=== PATIENT | male | born 1975 | race Caucasian/White ===

== ENCOUNTER 2018-07-12 11:28 | Inpatient (IN) | payer OTHER ==
[2018-07-12 12:18] VITALS: BMI 20.5
--- NOTE | 2018-07-12 12:38 | HP ---
Admission [facility] Chief Complaint: i am here for rehab from crystal meth Allergies/Adverse Reactions: Allergies Allergy/AdvReac Type Severity Reaction Status Date / Time No Known Allergies Allergy Verified 07/12/18 12:10 History of Present Illness: this 43 years old male with crystal meth dependence,seeking rehab hepatitis c had i and d abscess left forearm 2 weeks ago on antibiotics bipolar disorder,anxiety,depression,ptsd weight loss last rehab [facility] Exam Limitations: No Limitations - Ebola screening Have you traveled outside of the country in the last 21 days: No Have you had contact with anyone from an Ebola affected area: No Have you been sick,other than usual withdrawal symptoms: No Do you have a fever: No - Review of Systems Constitutional: No Symptoms Reported EENT: reports: No Symptoms Reported Respiratory: reports: No Symptoms reported Cardiac: reports: No Symptoms Reported GI: reports: No Symptoms Reported : reports: No Symptoms Reported Musculoskeletal: reports: No Symptoms Reported Integumentary: reports: No Symptoms Reported Neuro: reports: No Symptoms reported Endocrine: reports: No Symptoms Reported Hematology: reports: No Symptoms Reported Psychiatric: reports: No Sypmtoms Reported, Judgement Intact, Mood/Affect Appropiate, Orientated x3, Anxious, Depressed (bipolar disorder,depression,ptsd, ) Patient History - Patient Medical History Hx Anemia: No Hx Asthma: No Hx Chronic Obstructive Pulmonary Disease (COPD): No Hx Cancer: No Hx Cardiac Disorders: No Hx Congestive Heart Failure: No Hx Hypertension: No Hx Seizures: No Hx Dementia: No Hx Diabetes: No Hx Gastrointestinal Disorders: Yes (stomach ulcer) Hx Genitourinary Disorders: No Hx Sexually Transmitted Disorders: Yes (syphilis) Hx Renal Disease (ESRD): No Hx Thyroid Disease: No Hx Human Immunodeficiency Virus (HIV): No (05/30 negative) Hx Depression: Yes Hx Suicide Attempt: No Hx Bipolar Disorder: Yes Hx Schizophrenia: No Other Medical History: ptsd,anxiety,no suicidal,no homicidal - Patient Surgical History Past Surgical History: Yes Hx Neurologic Surgery: No Hx Cataract Extraction: No Hx Cardiac Surgery: No Hx Lung Surgery: No Hx Breast Surgery: No Hx Breast Biopsy: No Hx Abdominal Surgery: No Hx Appendectomy: No Hx Cholecystectomy: No Hx Genitourinary Surgery: No Hx Section: No Hx Orthopedic Surgery: Yes (fx, right ankle at age 27) Other Surgical History: incision and drainage, abscess, left forearm Anesthesia Reaction: No - PPD History Previous Implant?: Yes Documented Results: Negative w/o proof Implanted On Prior [facility] Admission?: No PPD to be Administered?: Yes - Smoking Cessation Smoking history: Current every day smoker Have you smoked in the past 12 months: Yes Aproximately how many cigarettes per day: 5 Hx Chewing Tobacco Use: No Initiated information on smoking cessation: Yes 'Breaking Loose' booklet given: 07/12/18 - Substance & Tx. History Hx Alcohol Use: No Hx Substance Use: Yes Hx Substance Use Treatment: Yes ([facility]) - Substances Abused Crystal meth. Route: Injection Frequency: 3-6 times per week Amount used: $200 Age of first use: 38 Date of Last Use: 07/10/18 Family Disease History - Family Disease History Family Disease History: Other: Father (dsa) Admission Physical Exam [facility] - Vital Signs Vital Signs: Vital Signs - 24 hr 07/12/18 12:14 Temperature 98.5 F Pulse Rate 83 Respiratory 20 Rate Blood Pressure 116/67 - Physical General Appearance: Yes: Within Normal Limits HEENTM: Yes: Normal ENT Inspection, CLAUDIA, Pharynx Normal Respiratory: Yes: Within Normal Limits, Lungs Clear, Normal Breath Sounds Neck: Yes: Within Normal Limits, Supple, Trachea in good position Breast: Yes: Within Normal Limits Cardiology: Yes: Within Normal Limits, Regular Rhythm, Regular Rate, S1, S2 Abdominal: Yes: Within Normal Limits, Normal Bowel Sounds, Non Tender, Flat, Soft Genitourinary: Yes: Within Normal Limits Back: Yes: Within Normal Limits Musculoskeletal: Yes: Within Normal Limits Extremities: Yes: Within Normal Limits, Inflammation Neurological: Yes: Fully Oriented, Alert, Motor Strength 5/5 Integumentary: Yes: Within Normal Limits (resolving abscess left forearm) - Diagnostic (1) Methamphetamine addiction Current Visit: Yes Status: Acute (2) Abscess of left forearm Current Visit: Yes Status: Acute (3) Weight loss Current Visit: Yes Status: Acute (4) Nicotine dependence Current Visit: Yes Status: Acute (5) Bipolar disorder Current Visit: Yes Status: Acute (6) PTSD (post-traumatic stress disorder) Current Visit: Yes Status: Acute (7) Anxiety and depression Current Visit: Yes Status: Acute Cleared for Admission [facility] - Detox or Rehab Claeared for Rehab Admission: Yes [facility] Breath Alcohol Content Breath Alcohol Content: 0 Urine Drug Screen - Results Drug Screen Negative: No Urine Drug Screen Results: THC-Marijuana, AMP-Amphetamines, MET-Methamphetamine , MDMA-Ecstasy, BAR-Barbiturates Inpatient Rehab Admission - Initial Determination Are CD services needed?: Yes Free of communicable disease: Yes Not in need of hospitalization: Yes - Rehab Admission Criteria Previous failed treatment: Yes Poor recovery environment: Yes Comorbidities: Yes Patient is meeting Inpatient Rehab admission criteria:: Yes
[2018-07-12] MEDS ORDERED: guaiFENesin/D-METHORPHAN HB 10 ML UNIT-DOSE CUPS PO PRN (12:50)
[2018-07-12] MEDS ORDERED: MAGNESIUM HYDROX 2400MG/30ML ORAL SUSPENSION 30 ML CUP PO PRN (12:50)
[2018-07-12] MEDS ORDERED: LOPERAMIDE HCL 2 MG CAPSULE PO PRN (12:50)
[2018-07-12] MEDS ORDERED: ACETAMINOPHEN 325 MG TABLET (FP) PO PRN (12:50)
[2018-07-12] MEDS ORDERED: MENTHOL/PHENOL 1 EACH UD MM PRN (12:50)
[2018-07-12] MEDS ORDERED: MAG HYDROX/AL HYDROX/SIMETH 30 ML UNIT-DOSE CUP PO PRN (12:50)
[2018-07-12] MEDS ORDERED: MAGNESIUM CITRATE 300 ML BOTTLE PO PRN (12:50)
[2018-07-12] MEDS ORDERED: P-EPHED 60MG/TRIPROLIDI 2.5MG TABLET PO PRN (12:50)
[2018-07-12] MEDS ORDERED: TUBERCULIN PPD 5 TU/0.1ML VIAL ID ONE (14:38)
[2018-07-12] MEDS: CEPHALEXIN MONOHYDRATE 500 MG CAPSULE (UD) PO SCH ×2 (14:38→22:02)
[2018-07-12] MEDS: NICOTINE 21 MG/24 HOURS TOPICAL PATCH TD SCH (14:39)
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
--- NOTE | 2018-07-12 15:38 | EKG ---
Test Reason : Blood Pressure : / mmHG Vent. Rate : 084 BPM Atrial Rate : 084 BPM P-R Int : 152 ms QRS Dur : 102 ms QT Int : 394 ms P-R-T Axes : 068 092 061 degrees QTc Int : 465 ms NORMAL SINUS RHYTHM POSSIBLE LEFT ATRIAL ENLARGEMENT RIGHTWARD AXIS INCOMPLETE RIGHT BUNDLE BRANCH BLOCK BORDERLINE ECG NO PREVIOUS ECGS AVAILABLE Confirmed by LUIS F VARGAS MD ([id number]) on 07/12/2018 3:38:27 PM Referred By: Milad WHITTINGTON Confirmed By:LUIS F VARGAS MD
[2018-07-12] MEDS: GABAPENTIN 300 MG CAPSULE (FP) PO SCH ×2 (16:10→22:03)
[2018-07-12] MEDS: hydrOXYzine PAMOATE 25 MG CAPSULE (FP) PO PRN (16:10)
[2018-07-12] MEDS: DOXYCYCLINE HYCLATE 100 MG TABLET PO SCH (17:42)
[2018-07-12 17:59] LABS: HEMATOCRIT 42.5 % (35.4-49); HEMOGLOBIN 14.3 GM/dL (11.7-16.9); MCH 30.5 pg (25.7-33.7); MCHC 33.7 g/dl (32.0-35.9); MEAN CELL VOLUME 90.5 fl (80-96); MEAN PLT VOLUME 8.2 fl (7.5-11.1); PLATELET COUNT 218 K/MM3 (134-434); RBC 4.69 M/mm3 (4.00-5.60); RDW 13.7 % (11.9-15.9); WHITE BLOOD COUNT 6.4 K/mm3 (4.0-10.0)
[2018-07-12 18:20] LABS: ALBUMIN 3.5 g/dl (3.4-5.0); ALK PHOS 122 U/L (45-117); ANION GAP 10 MMOL/L (8-16); BILIRUBIN,TOTAL 0.5 mg/dL (0.2-1); BLOOD UREA NITROGEN 21 mg/dL (7-18); CALCIUM 8.1 mg/dL (8.5-10.1); CHLORIDE 107 mmol/L (98-107); CO2 24 mmol/L (21-32); CREATININE 0.9 mg/dL (0.55-1.3); GLUCOSE,RANDOM 140 mg/dL (74-106); POTASSIUM 3.7 mmol/L (3.5-5.1); SGOT/AST 147 U/L (15-37); SGPT/ALT 178 U/L (13-61); SODIUM 141 mmol/L (136-145); TOT PROT 6.8 g/dl (6.4-8.2)
[2018-07-12 18:30] LABS: URINE APPEARANCE TURBID; URINE BILIRUBIN NEGATIVE (<2.0 mg/dL); URINE COLOR YELLOW; URINE GLUCOSE (UA) NEGATIVE (NEGATIVE); URINE KETONE NEGATIVE (NEGATIVE); URINE LEUK ESTERASE NEGATIVE (NEGATIVE); URINE NITRITE NEGATIVE (NEGATIVE); URINE PROTEIN 1+ (NEGATIVE); URINE UROBILINOGEN 4.0 E.U/dl mg/dL (0.2-1.0)
[2018-07-12 19:09] LABS: URINE MUCUS RARE
[2018-07-12] MEDS ORDERED: MELATONIN 5 MG TABLETS PO PRN (22:00)
[2018-07-12] MEDS: lamoTRIgine 25 MG TABLET PO SCH (22:02)
[2018-07-12] MEDS: QUEtiapine FUMARATE 50 MG TABLET PO SCH (22:03)
[2018-07-12] MEDS: LITHIUM CARBONATE 150 MG CAPSULE PO SCH (22:03)
[2018-07-12] MEDS: THIAMINE HCL 100 MG TABLET (FP) PO SCH (22:03)
[2018-07-13] MEDS: CEPHALEXIN MONOHYDRATE 500 MG CAPSULE (UD) PO SCH ×4 (02:45→21:44)
[2018-07-13] MEDS: GABAPENTIN 300 MG CAPSULE (FP) PO SCH ×3 (07:00→21:44)
[2018-07-13 09:31] LABS: RPR REACTIVE 1:8 (NONREACTIVE)
[2018-07-13 09:35] LABS: TREPONEMA ANTIBODY REACTIVE (NONREACTIVE)
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
[2018-07-13] MEDS: PRENATAL VITAMINS W/ FOLIC ACID TABLET (FP) PO SCH (10:53)
[2018-07-13] MEDS: DOXYCYCLINE HYCLATE 100 MG TABLET PO SCH ×2 (10:53→18:21)
[2018-07-13] MEDS: LITHIUM CARBONATE 150 MG CAPSULE PO SCH ×2 (10:55→21:44)
[2018-07-13] MEDS: NICOTINE 21 MG/24 HOURS TOPICAL PATCH TD SCH (10:56)
[2018-07-13] MEDS: hydrOXYzine PAMOATE 25 MG CAPSULE (FP) PO PRN (18:23)
[2018-07-13] MEDS: lamoTRIgine 25 MG TABLET PO SCH (21:43)
[2018-07-13] MEDS: THIAMINE HCL 100 MG TABLET (FP) PO SCH (21:44)
[2018-07-13] MEDS: QUEtiapine FUMARATE 50 MG TABLET PO SCH (21:44)
[2018-07-14] MEDS: CEPHALEXIN MONOHYDRATE 500 MG CAPSULE (UD) PO SCH ×4 (06:57→23:07)
[2018-07-14] MEDS: GABAPENTIN 300 MG CAPSULE (FP) PO SCH ×3 (06:57→21:35)
[2018-07-14] MEDS: DOXYCYCLINE HYCLATE 100 MG TABLET PO SCH ×2 (10:39→18:49)
[2018-07-14] MEDS: LITHIUM CARBONATE 150 MG CAPSULE PO SCH ×2 (10:39→21:35)
[2018-07-14] MEDS: NICOTINE 21 MG/24 HOURS TOPICAL PATCH TD SCH (10:39)
[2018-07-14] MEDS: PRENATAL VITAMINS W/ FOLIC ACID TABLET (FP) PO SCH (10:39)
--- NOTE | 2018-07-14 12:10 | PN ---
[facility] Progress Note Note: Patient reports feeling drowsy and tired since the time he started Seroquel 150 mg po hs.Properties of Seroquel has been discussed including side effects, benefits and dose adjustment.Seroquel 150 mg po hs will be adjusted to 100 mg po hs.Supportive therapy provided.
[2018-07-14] MEDS ORDERED: QUEtiapine FUMARATE 100 MG TABLET (FP) PO SCH (12:30)
[2018-07-14] MEDS: THIAMINE HCL 100 MG TABLET (FP) PO SCH (21:35)
[2018-07-14] MEDS: lamoTRIgine 25 MG TABLET PO SCH (21:35)
[2018-07-14] MEDS: QUEtiapine FUMARATE 100 MG TABLET (FP) PO SCH (21:35)
[2018-07-15] MEDS: GABAPENTIN 300 MG CAPSULE (FP) PO SCH ×3 (06:23→21:47)
[2018-07-15] MEDS: CEPHALEXIN MONOHYDRATE 500 MG CAPSULE (UD) PO SCH ×4 (06:23→23:37)
[2018-07-15] MEDS: DOXYCYCLINE HYCLATE 100 MG TABLET PO SCH ×2 (09:56→17:31)
[2018-07-15] MEDS: LITHIUM CARBONATE 150 MG CAPSULE PO SCH ×2 (09:56→21:47)
[2018-07-15] MEDS: PRENATAL VITAMINS W/ FOLIC ACID TABLET (FP) PO SCH (09:56)
[2018-07-15] MEDS: NICOTINE 21 MG/24 HOURS TOPICAL PATCH TD SCH (09:57)
[2018-07-15] MEDS: hydrOXYzine PAMOATE 25 MG CAPSULE (FP) PO PRN (12:10)
[2018-07-15] MEDS: THIAMINE HCL 100 MG TABLET (FP) PO SCH (21:47)
[2018-07-15] MEDS: lamoTRIgine 25 MG TABLET PO SCH (21:47)
[2018-07-15] MEDS: QUEtiapine FUMARATE 100 MG TABLET (FP) PO SCH (21:47)
[2018-07-16] MEDS: GABAPENTIN 300 MG CAPSULE (FP) PO SCH ×3 (06:24→21:41)
[2018-07-16] MEDS: CEPHALEXIN MONOHYDRATE 500 MG CAPSULE (UD) PO SCH ×4 (06:24→23:25)
[2018-07-16] MEDS: LITHIUM CARBONATE 150 MG CAPSULE PO SCH ×2 (10:02→21:41)
[2018-07-16] MEDS: DOXYCYCLINE HYCLATE 100 MG TABLET PO SCH ×2 (10:02→18:06)
[2018-07-16] MEDS: PRENATAL VITAMINS W/ FOLIC ACID TABLET (FP) PO SCH (10:02)
[2018-07-16] MEDS: hydrOXYzine PAMOATE 25 MG CAPSULE (FP) PO PRN ×2 (10:04→18:08)
[2018-07-16] MEDS: NICOTINE 21 MG/24 HOURS TOPICAL PATCH TD SCH (10:04)
[2018-07-16] MEDS: IBUPROFEN 400 MG TABLET (FP) PO PRN ×2 (14:28→21:43)
[2018-07-16] MEDS: THIAMINE HCL 100 MG TABLET (FP) PO SCH (21:41)
[2018-07-16] MEDS: lamoTRIgine 25 MG TABLET PO SCH (21:41)
[2018-07-16] MEDS: QUEtiapine FUMARATE 100 MG TABLET (FP) PO SCH (21:41)
[2018-07-17] MEDS: CEPHALEXIN MONOHYDRATE 500 MG CAPSULE (UD) PO SCH (06:14)
[2018-07-17 06:59] VITALS: BP 94/59; PULSE 91; TEMP 98.1
[2018-07-17] MEDS: GABAPENTIN 300 MG CAPSULE (FP) PO SCH (08:01)
--- NOTE | 2018-07-17 09:54 | PN ---
[facility] Progress Note Note: Patient decided to sign out AMA today.He will continue to address his issues on outpatient basis,scripts for psychotropic medications provided for 30 days supply.
[2018-07-17] MEDS: LITHIUM CARBONATE 150 MG CAPSULE PO SCH (11:16)
[2018-07-17] MEDS: PRENATAL VITAMINS W/ FOLIC ACID TABLET (FP) PO SCH (11:16)
[2018-07-17] MEDS: NICOTINE 21 MG/24 HOURS TOPICAL PATCH TD SCH (11:16)
[2018-07-17] MEDS: DOXYCYCLINE HYCLATE 100 MG TABLET PO SCH (11:17)
--- NOTE | 2018-07-17 12:28 | PN ---
[facility] Progress Note Note: PT SIGNED OUT AMA TODAY. WAS SEEN BY HIS COUNSELOR AND AFTERCARE REFERRAL TO PROJECT RENEWAL TO BE FOLLOWED UP. PT TO FOLLOW UP WITH PCP FOR MEDICALO MANAGEMENT. Vital Signs 07/17/18 06:58 Temperature 98.1 F Pulse Rate 91 H Respiratory 18 Rate Blood Pressure 94/59 L
== END 2018-07-17 10:50 | disposition left against medical advice (07) | DRG 770 ==
LOC: YASAS 11:28 → Y5N 13:19
PROVIDERS: ADMIT Psychiatry & Neurology Psychiatry; ATTEND Psychiatry & Neurology Psychiatry
PROC: HZ42ZZZ Group Counseling for Substance Abuse Treatment, Cognitive-Behavioral (ICD-10-PCS; principal; 2018-07-12)
DX: F15.20 Other stimulant dependence, uncomplicated (principal); F17.210 Nicotine dependence, cigarettes, uncomplicated; F43.10 Post-traumatic stress disorder, unspecified; F31.9 Bipolar disorder, unspecified; F41.8 Other specified anxiety disorders; B18.2 Chronic viral hepatitis C; L02.414 Cutaneous abscess of left upper limb; Z87.438 Personal history of other diseases of male genital organs
CPT/HCPCS: 36415; 80053; 81003; 81015; 85027; 86593; 86780; 93005; 93010